=== PATIENT | female | born 1960 | race Caucasian/White ===

== ENCOUNTER 2024-07-15 11:26 | Day surgery (SDC) | payer MEDICARE ==
[~2024-07-15] VITALS: Ht 154.9 cm; Wt 74.9 kg
[~2024-07-15 11:26] MED LIST: AMLO1TAB24 PO; CYAN500T14 PO; DULO1CAP5 PO; JARD1TAB PO; LOSA100T5 PO; METF500T13 PO; NS 250 ML IV ONE; ROSU5TAB40 PO
[2024-07-15 13:10] VITALS: BP 124/61; TEMP 97.2; O2SAT 97
== END 2024-07-15 13:22 | disposition home or self-care (01) ==
LOC: M OPP 11:26
PROVIDERS: ATTEND Internal Medicine Gastroenterology
DX: Z12.11 Encounter for screening for malignant neoplasm of colon (principal); Z12.12 Encounter for screening for malignant neoplasm of rectum; D12.5 Benign neoplasm of sigmoid colon; K64.0 First degree hemorrhoids; K57.30 Diverticulosis of large intestine without perforation or abscess without bleeding; E11.9 Type 2 diabetes mellitus without complications; I10 Essential (primary) hypertension; E78.00 Pure hypercholesterolemia, unspecified; Z79.899 Other long term (current) drug therapy; Z79.84 Long term (current) use of oral hypoglycemic drugs; Z85.828 Personal history of other malignant neoplasm of skin; Z88.0 Allergy status to penicillin